=== PATIENT | male | born 1995 | race Caucasian/White ===

== ENCOUNTER 2022-07-28 02:12 | Emergency (ER) | payer OTHER ==
[2022-07-28 02:19] VITALS: BP 151/85; PULSE 86; RESP 16; TEMP 98.1
[2022-07-28] MEDS ORDERED: ONDANSETRON ODT 4 MG TAB PO STA (02:35)
--- NOTE | 2022-07-28 02:39 | ED ---
Back Pain HPI - General Chief Complaint: Back Pain/Injury Stated Complaint: Back Pain Time Seen by Provider: 07/28/22 02:25 Source: patient, family, RN notes reviewed, old records reviewed Mode of arrival: ambulatory - History of Present Illness Initial Comments: Well-appearing 26-year-old male presents to the emergency room ambulatory with sudden onset of left-sided back pain radiating into his left groin at 9:30 this evening. Patient states that he did take some Advil for the pain. He did try to drink some water and became nauseated and vomited. Denies any fevers. No history of kidney stones but does have a history of hypertension. Denies any injury. Nonsmoker but does vape. MD Complaint: back pain -: hour(s) (5) Similar Symptoms Previously: No Severity scale (1-10): 0 Consistency: now resolved Improves With: medication (advil), other (heat) Associated Symptoms: other (Nausea vomiting) Treatments Prior to Arrival: NSAIDS, other (heat) - Related Data Allergies Allergy/AdvReac Type Severity Reaction Status Date / Time No Known Allergies Allergy Verified 07/28/22 02:19 Review of Systems ROS Statement: Those systems with pertinent positive or pertinent negative responses have been documented in the HPI. ROS Other: All systems not noted in ROS Statement are negative. Past Medical History Past Medical History: Hypertension History of Any Multi-Drug Resistant Organisms: None Reported Past Surgical History: No Surgical Hx Reported Past Psychological History: No Psychological Hx Reported Smoking Status: Vaper Past Alcohol Use History: Occasional Past Drug Use History: None Reported General Exam Limitations: no limitations General appearance: alert, in no apparent distress Eye exam: Absent: scleral icterus, conjunctival injection Respiratory exam: Present: normal lung sounds bilaterally. Absent: respiratory distress, wheezes, rales, rhonchi, stridor, chest wall tenderness, accessory muscle use Cardiovascular Exam: Present: regular rate, normal heart sounds Back exam: Present: full ROM. Absent: tenderness, CVA tenderness (R), CVA tenderness (L), muscle spasm, paraspinal tenderness, vertebral tenderness, rash noted Neurological exam: Present: alert, oriented X3 Psychiatric exam: Present: normal affect, normal mood Skin exam: Present: warm, dry, normal color. Absent: cyanosis, diaphoretic Course Vital Signs 07/28/22 02:16 Temperature 98.1 F Pulse Rate 86 Respiratory 16 Rate Blood Pressure 151/85 O2 Sat by Pulse 98 Oximetry Medical Decision Making - Medical Decision Making Patient presents with sudden onset left flank pain at 9:30 tonight. States did have 1 episode of vomiting after drinking water but denies any fevers. Complete relief with heat and Advil prior to arrival. Patient denies any injuries. He is a nonsmoker but does vape. Urinalysis does show trace blood. This was likely a kidney stone. He was instructed to increase his fluid intake, Tylenol and Motrin as needed for any pain or discomfort. Strict return parameters were discussed with the patient and family. They are agreeable to this plan of care. Case discussed with Dr Smith. - Lab Data Lab Results 07/28/22 Range/Units 02:43 Urine Color Light Yellow Urine Appearance Clear (Clear) Urine pH 5.5 (5.0-8.0) Ur Specific [place] 1.005 (1.001-1.035) Urine Protein 1+ H (Negative) Urine Glucose (UA) Negative (Negative) Urine Ketones Negative (Negative) Urine Blood Trace H (Negative) Urine Nitrite Negative (Negative) Urine Bilirubin Negative (Negative) Urine Urobilinogen <2.0 (<2.0) mg/dL Ur Leukocyte Esterase Negative (Negative) Urine RBC <1 (0-5) /hpf Urine WBC 1 (0-5) /hpf Urine Mucus Rare H (None) /hpf Disposition Clinical Impression: Back pain Disposition: HOME SELF-CARE Condition: Good Instructions (If sedation given, give patient instructions): Acute Low Back Pain (ED) Additional Instructions: Increase your fluid intake. Motrin as needed for any pain. Return to the emergency room with a new or concerning symptoms including fevers, persistent nausea vomiting or inability to urinate. Is patient prescribed a controlled substance at d/c from ED?: No Referrals: None,Stated [Primary Care Provider] - 1-2 days Time of Disposition: 03:02
[2022-07-28 02:50] LABS: Appearance,Urine Clear (Clear); Bilirubin,Urine Negative (Negative); Blood,Urine Trace (Negative); Color,Urine Light Yellow; Glucose,Urine (UA) Negative (Negative); Ketones,Urine Negative (Negative); Leukocyte Esterase,Urine Negative (Negative); Mucus,Urine Rare /hpf; Nitrite,Urine Negative (Negative); PH, Urine 5.5 (5.0-8.0); Protein,Urine 1+ (Negative); RBC,Urine <1 /hpf (0-5); Specific Gravity,Urine 1.005 (1.001-1.035); Urobilinogen,Urine <2.0 mg/dL (<2.0); WBC,Urine 1 /hpf (0-5)
== END 2022-07-28 03:23 | disposition home or self-care (01) ==
LOC: EC 02:12
DX: M54.50 Low back pain, unspecified (principal); I10 Essential (primary) hypertension; F12.90 Cannabis use, unspecified, uncomplicated
CPT/HCPCS: 81001; 99283